=== PATIENT | male | born 1955 | race American Indian/Alaskan Native ===

== ENCOUNTER 2020-08-13 11:25 | Emergency (ER) | payer SELFPAY ==
[2020-08-13 11:38] VITALS: BP 162/71
[2020-08-13] MEDS ORDERED: KETOROLAC 30 MG/1 ML INJ IM ONE (13:06)
--- NOTE | 2020-08-13 13:11 | Emergency Department Report ---
ED Back Pain/Injury HPI - General Chief Complaint: Back Pain/Injury Stated Complaint: BACK PAIN Time Seen by Provider: 08/13/20 12:56 Source: patient Limitations: No Limitations - History of Present Illness Initial Comments: The patient was evaluated in the emergency department for symptoms described in the history of present illness. He/she was evaluated in the context of the global COVID-19 pandemic, which necessitated consideration that the patient might be at risk for infection with the virus that causes COVID-19. Institutional protocols and algorithms that pertain to the evaluation of patients at risk for COVID-19 are in a state of rapid change based on information released by regulatory bodies including the CDC and federal and state organizations. These policies and algorithms were followed during the patient's care in the emergency department. Please note that these policies, procedures and recommendations changed on a rapid basis. 65-year-old -[place] male with a significant past medical history of a CVA, diabetes and hypertension that presents to the emergency room for lower back pain. Patient states that the back pain is been going on for 3 days. He denies any recent falls. He denies any new balance issues and ambulates with a cane. He does report a little bit more difficulty in walking in the last 3 days. Patient denies any dysuria no urinary or bowel incontinence. Took some pain medication this morning and states it did not help with his pain. Patient denies any drug allergies. Patient states he does not have a primary care provider secondary to no insurance and recently moved from [facility]. Complaint: back pain Onset/Timin -: days(s) Similar Symptoms Previously: No Radiation: none Severity: moderate Severity scale (0 -10): 6 Quality: sharp (When moving), aching Improves With: none Worsens With: movement Context: unknown Associated Symptoms: difficulty walking (Increase) - Related Data Previous Rx's Medication Instructions Recorded Last Taken Type Meloxicam [Mobic] 7.5 mg PO QDAY #30 tablet 08/13/20 Unknown Rx Allergies Allergy/AdvReac Type Severity Reaction Status Date / Time No Known Allergies Allergy Unverified 08/13/20 11:29 ED Review of Systems ROS: Stated complaint: BACK PAIN Other details as noted in HPI Comment: All other systems reviewed and negative ED Past Medical Hx - Past Medical History Previous Medical History?: Yes Hx Hypertension: Yes Hx CVA: Yes Hx Diabetes: Yes - Social History Smoking Status: Never Smoker - Medications Home Medications: Home Medications Medication Instructions Recorded Confirmed Last Taken Type Meloxicam [Mobic] 7.5 mg PO QDAY #30 tablet 08/13/20 Unknown Rx ED Physical Exam - General Limitations: No Limitations General appearance: alert, in no apparent distress, other (Involuntary movement) - Head Head exam: Present: atraumatic, normocephalic - Eye Eye exam: Present: normal appearance - ENT ENT exam: Present: mucous membranes moist - Neck Neck exam: Present: normal inspection, full ROM - Respiratory Respiratory exam: Present: normal lung sounds bilaterally. Absent: chest wall tenderness, accessory muscle use - Cardiovascular Cardiovascular Exam: Present: regular rate, normal rhythm. Absent: systolic murmur, diastolic murmur, rubs, gallop - GI/Abdominal GI/Abdominal exam: Present: soft. Absent: distended, tenderness - Extremities Exam Extremities exam: Present: normal inspection, full ROM - Back Exam Back exam: Present: full ROM, muscle spasm, vertebral tenderness (Sacral area) - Neurological Exam Neurological exam: Present: alert, oriented X3 - Psychiatric Psychiatric exam: Present: normal affect, normal mood - Skin Skin exam: Present: warm, dry, intact, normal color. Absent: rash ED Course Vital Signs 08/13/20 08/13/20 08/13/20 11:33 13:20 13:50 Temperature 97.9 F Pulse Rate 54 L Respiratory 20 18 18 Rate Blood Pressure 162/71 O2 Sat by Pulse 94 Oximetry ED Medical Decision Making - Radiology Data Radiology results: report reviewed Patient: HAIM GRAVES MR#: [id number] : 1955 Acct:[id number] Age/Sex: 65 / M ADM Date: 08/13/20 Loc: ED Attending Dr: Ordering Physician: BRAN BLANCO Date of Service: 08/13/20 Procedure(s): XR spine lumbosacral 2-3V Accession Number(s): [id number] cc: BRAN BALNCO Fluoro Time In Minutes: LUMBOSACRAL SPINE 3 VIEWS INDICATION / CLINICAL INFORMATION: Lumbar/sacral pain. COMPARISON: None available. FINDINGS: VERTEBRAE: No acute fracture. No significant malalignment. DISC SPACES / FACET JOINTS:Mild narrowing at L4-5 and L5-S1. Facet degenerative arthrosis is most prominent at L4-5 and L5-S1 as well. PARASPINAL SOFT TISSUES:Significant atherosclerotic calcification. ADDITIONAL FINDINGS: None. Signer Name: Jordin Hercules MD Signed: 08/13/2020 1:46 PM Workstation Name: [id number] Transcribed By: Dictated By: JORDIN HERCULES III Electronically Authenticated By: JORDIN HERCULES III Signed Date/Time: 08/13/201345 DD/ 44 TD/TT: - Medical Decision Making 65-year-old -[place] male with a significant past medical history of a CVA, diabetes and hypertension that presents to the emergency room for lower back pain. Patient states that the back pain is been going on for 3 days. He denies any recent falls. He denies any new balance issues and ambulates with a cane. He does report a little bit more difficulty in walking in the last 3 days. Patient denies any dysuria no urinary or bowel incontinence. Took some pain medication this morning and states it did not help with his pain. Patient denies any drug allergies. Patient states he does not have a primary care provider secondary to no insurance and recently moved from [facility]. X-ray lumbar sacral and Toradol 30 mg ordered. Lumbar sacral x-ray shows degenerative arthrosis and L4-5 and L5-S1. Patient will be discharge home on a prescription for Mobic 7.5 mg daily and to follow-up with his primary care provider. I have listed 1 below for his convenience. Critical care attestation.: If time is entered above; I have spent that time in minutes in the direct care of this critically ill patient, excluding procedure time. ED Disposition Clinical Impression: Facet arthritis, degenerative, L5-S1 level, lumbosacral spine, Degenerative disc disease, lumbar, History of diabetes mellitus, type II, Hypertension, History of CVA (cerebrovascular accident) Disposition: - TO HOME OR SELFCARE Is pt being admited?: No Does the pt Need Aspirin: No Condition: Stable Instructions: Facet Syndrome, Degenerative Disk Disease, Hypertension (ED) Additional Instructions: X-ray of back shows arthritis in his lower back. I recommend taking pain medication and to follow-up with a primary care provider. Prescriptions: Meloxicam [Mobic] 7.5 mg PO QDAY #30 tablet Referrals: [facility] [Provider Group] - 3-5 Days
--- NOTE | 2020-08-13 13:50 | XRay Report ---
LUMBOSACRAL SPINE 3 VIEWS INDICATION / CLINICAL INFORMATION: Lumbar/sacral pain. COMPARISON: None available. FINDINGS: VERTEBRAE: No acute fracture. No significant malalignment. DISC SPACES / FACET JOINTS:Mild narrowing at L4-5 and L5-S1. Facet degenerative arthrosis is most pro minent at L4-5 and L5-S1 as well. PARASPINAL SOFT TISSUES:Significant atherosclerotic calcification. ADDITIONAL FINDINGS: None. Signer Name: Huber Hercules MD Signed: 08/13/2020 1:46 PM Workstation Name: [id number]
== END 2020-08-13 14:19 | disposition home or self-care (01) ==
LOC: ED 11:25
DX: M47.817 Spondylosis without myelopathy or radiculopathy, lumbosacral region (principal); M51.36 Other intervertebral disc degeneration, lumbar region; I10 Essential (primary) hypertension; E11.9 Type 2 diabetes mellitus without complications; Z79.899 Other long term (current) drug therapy; Z86.73 Personal history of transient ischemic attack (TIA), and cerebral infarction without residual deficits
CPT/HCPCS: 72100; 96372; 99283; J1885